=== PATIENT | female | born 1970 | race Caucasian/White ===

== ENCOUNTER 2016-09-15 08:50 | Outpatient (CLI) | payer OTHER ==
[~2016-09-15 08:50] MED LIST: NORCO1 TA1 PO; VISTARIL25 MG PO
--- NOTE | 2016-09-15 10:53 | DIAGNOSTIC IMAGING REPORT ---
PROCEDURE: US SOFT TISSUE THYR/NECK/HEAD INDICATION: Enlarged thyroid, follow-up nodule. TECHNIQUE: Parekh scale and color Doppler sonographic images of the thyroid gland were obtained. COMPARISON: 05/08/2015 FINDINGS: The right thyroid lobe measures 6.0 x 2.2 x 2.1 cm. The left thyroid lobe measures 3.6 x 1.4 x 1.2 cm. The isthmus measures 4.4 mm in thickness. There is a dominant, fairly well-circumscribed, encapsulated nodule measuring 3.0 x 1.9 x 1.7 cm involving the mid to lower portion of the right thyroid lobe. Internal echotexture is isoechoic to thyroid parenchyma. Vascularity is increased peripheral and internally. No suspicious microcalcification. The left lobe demonstrates homogeneous glandular echotexture without nodule, cyst, or microcalcification. No significant adenopathy adjacent to the gland. IMPRESSION: 1. Stable to minimally enlarged size of dominant right thyroid nodule. 2. No suspicious features. 3. Annual follow-up for 5 years to document stability is recommended.
== END 2016-09-15 23:00 ==
LOC: US SRH 08:50
DX: E04.9 Nontoxic goiter, unspecified (principal)